=== PATIENT | male | born 1970 | race Two or more races ===

== ENCOUNTER 2016-04-02 23:15 | Emergency (ER) | payer OTHER ==
[~2016-04-02] VITALS: Ht 167.6 cm; Wt 82.4 kg
[~2016-04-02 23:15] MED LIST: ATENOLOL25 M1; ATORVASTATIN CA10 MG PO; Ecotrin PO; LO-DOSE ASPIRIN81 M1 PO; METOPROLOL SUCC50 MG PO; Prevacid PO; SIMVASTATIN20 M1 PO; TENORMIN25 MG PO; Tenormin PO; ZESTRIL,PRINIVI10 MG PO; ZESTRIL5 MG PO; Zestril,Prinivil PO; Zovirax PO; predniSONE PO
[2016-04-02 23:54] LABS: HEMATOCRIT 45.5 % (38.0-50.0); MCH 30.8 PG (29.0-34.0); MCHC 35.8 G/DL (30.0-36.0); MCV 85.8 FL (86-99); MEAN PLAT.VOLUME 10.8 uM^3 (9.0-12.4); PLATELET COUNT 242 K/uL (156-360); WHITE BLOOD COUNT 10.9 K/uL (4.1-10.2)
[2016-04-03 00:04] LABS: CHLORIDE 105 mEq/L (99-109); POTASSIUM 5.1 mEq/L (3.7-5.4); SODIUM 139 mEq/L (136-147)
[2016-04-03 00:06] LABS: GLUCOSE 119 mg/dL (70-99)
[2016-04-03 00:07] LABS: ANION GAP 9 MEQ/L (2-14)
[2016-04-03 00:08] LABS: TOTAL BILIRUBIN 0.5 mg/dL (0.0-1.0)
[2016-04-03 00:09] LABS: ALKALINE PHOSPHATASE 82 IU/L (3-129)
[2016-04-03 00:10] LABS: GFR ESTIMATE (CALCULATED) > 59 mL/min/
[2016-04-03 00:11] LABS: UREA NITROGEN (BUN) 20 mg/dL (9-23)
[2016-04-03 00:13] LABS: LIPASE 42 U/L (1.0-51.0)
[2016-04-03 00:18] LABS: ADD MIUA? NO; BILIRUBIN NEGATIVE; BLOOD NEGATIVE; COLOR YELLOW ((YELLOW)); GLUCOSE (STRIP) NEGATIVE; KETONES NEGATIVE; LEUKOCYTES NEGATIVE; NITRITE NEGATIVE; PH, URINE 5.5 (5-8); PROTEIN (STRIP) TRACE; SPECIFIC GRAVITY 1.028 (1.000-1.030); UCUL ADDED? NO; UROBILINOGEN 0.2 MG/DL (0.2-1.0)
[2016-04-03] MEDS ORDERED: ZOFRAN ODT4 MG PO (02:15)
[2016-04-03 02:23] VITALS: BP 132/84
== END 2016-04-03 02:35 | disposition home or self-care (01) ==
LOC: EME 23:15
DX: A08.4 Viral intestinal infection, unspecified (principal); E78.5 Hyperlipidemia, unspecified; I10 Essential (primary) hypertension; Z79.82 Long term (current) use of aspirin
CPT/HCPCS: 74177; 80053; 81003; 83690; 85027; 99281; 99285; J1885; J2405; J7030

== ENCOUNTER 2016-09-14 23:43 | Emergency (ER) | payer OTHER ==
[~2016-09-14] VITALS: Ht 167.6 cm; Wt 86.7 kg
[~2016-09-14 23:43] MED LIST changes: +ZOFRAN ODT4 MG PO
[2016-09-15 01:08] LABS: HEMATOCRIT 40.9 % (38.0-50.0); MCH 30.4 PG (29.0-34.0); MCHC 34.2 G/DL (30.0-36.0); MCV 88.9 FL (86-99); MEAN PLAT.VOLUME 10.1 uM^3 (9.0-12.4); PLATELET COUNT 226 K/uL (156-360); RBC DIS.WIDTH-CV 11.7 % (11.8-14.6); RBC DIS.WIDTH-SD 37.2 % (39-53); WHITE BLOOD COUNT 7.3 K/uL (4.1-10.2)
[2016-09-15 01:18] LABS: CHLORIDE 106 mEq/L (99-109); POTASSIUM 4.4 mEq/L (3.7-5.4); SODIUM 142 mEq/L (136-147)
[2016-09-15 01:21] LABS: GLUCOSE 109 mg/dL (70-99)
[2016-09-15 01:22] LABS: ANION GAP 10 MEQ/L (2-14)
[2016-09-15 01:23] LABS: TOTAL BILIRUBIN 0.2 mg/dL (0.0-1.0)
[2016-09-15 01:24] LABS: ALKALINE PHOSPHATASE 69 IU/L (3-129); GFR ESTIMATE (CALCULATED) 58 mL/min/
[2016-09-15 01:25] LABS: UREA NITROGEN (BUN) 22 mg/dL (9-23)
[2016-09-15 01:28] LABS: LIPASE 36 U/L (1.0-51.0)
[2016-09-15 01:49] VITALS: BP 143/74
[2016-09-16 18:30] LABS: COLLECTION SAMPLE Venous (())
== END 2016-09-15 01:50 | disposition home or self-care (01) ==
LOC: EME 23:43
PROVIDERS: Physician Assistant
DX: Z77.090 Contact with and (suspected) exposure to asbestos (principal); Z77.011 Contact with and (suspected) exposure to lead; R10.84 Generalized abdominal pain
CPT/HCPCS: 80053; 83655; 83655 90; 83690; 85027; 99281; 99283